=== PATIENT | female | born 1980 | race Caucasian/White ===

== ENCOUNTER → 2018-09-14 09:04 | Outpatient (CLI) | payer OTHER, SELFPAY ==
[2018-09-14 14:45] LABS: Erythrocyte Sedimentation Rate 37 mm/hr (0-20)
[2018-09-14 15:23] LABS: Alanine Aminotransferase 88 U/L (12-78); Albumin Level 3.2 gm/dL (3.4-5.0); Albumin/Globulin Ratio 0.8 (1.1-1.8); Alkaline Phosphatase 152 U/L (46-116); Anion Gap 13.7 mEq/L (5-15); Aspartate Amino Transferase 55 U/L (15-37); Bilirubin,Total 0.5 mg/dL (0.2-1.0); Blood Urea Nitrogen 13 mg/dL (7-18); C-Reactive Protein 11.9 mg/L (0.0-0.9); Calcium 8.8 mg/dL (8.5-10.1); Carbon Dioxide 26 mmol/L (21.0-32.0); Chloride 102 mmol/L (98-107); Creatinine,Serum 0.74 mg/dL (0.55-1.02); Estimated Glomerular Filt Rate 88 ml/min (>60); GFR (African American) 107 ML/MIN (>60); Globulin 4.1 gm/dl (1.3-3.2); Glucose 103 mg/dL (74-106); Potassium 4.7 mmoL/L (3.5-5.1); Sodium 137 mmol/L (136-145); Thyroid Stimulating Hormone 3.24 uIU/ml (0.358-3.740); Total Protein,Serum 7.3 gm/dL (6.4-8.2)
[2018-09-16 08:11] LABS: Antinuclear Antibodies, IFA Negative (.); RA Latex Turbid. 12.8 IU/mL (0.0-13.9)
== END ==
PROVIDERS: PCP Nurse Practitioner Family; Visit Provider Nurse Practitioner Family
DX: R60.1 Generalized edema (principal); M25.40 Effusion, unspecified joint
CPT/HCPCS: 36415; 80053; 84443; 85651; 86038; 86140; 86431

== ENCOUNTER → 2018-09-16 15:00 | Outpatient (CLI) | payer OTHER, SELFPAY ==
--- NOTE | 2018-09-16 15:03 | MR_ITS ---
MR lumbar spine wo con, MR 3-d myelogram/MRCP HISTORY: Low back pain with bilateral leg pain and right leg numbness and tingling ITS.REASON: RADICULOPATHY, LUMBOSACRAL REGION ORDERING PHYSICIAN: Denia Paniagua PATIENT AGE: 37 years Comparison: 09/04/2018 TECHNIQUE: Standard multiplanar multiecho sequences are performed without contrast. 3-D MIP and myelographic images are also rendered and reviewed FINDINGS: There is normal alignment. The spinal cord ends at the L1 level. There is mild rotoscoliosis of the lumbar spine convex left. T12-L1 and L1-L2 have an unremarkable appearance. There is decreased T1 and increased T2 signal involving the posterior and inferior aspect of the L2 vertebral body. No compressive changes are evident. L2-L3: Minimal disc desiccation. L3-L4: Minimal bulging discs eccentric toward the right. L4-L5: Unremarkable. L5-S1: Unremarkable. IMPRESSION: 1. Mild rotoscoliosis of lumbar spine convex left. 2. Bone marrow edema is present in the inferior aspect of the L2 vertebral body of uncertain etiology. Possibly related to mild discogenic endplate changes. Follow-up may confirm stability. No disc herniation or canal stenosis.
== END ==
PROVIDERS: PCP Nurse Practitioner Family; Visit Provider Nurse Practitioner Family
DX: M54.17 Radiculopathy, lumbosacral region (principal)
CPT/HCPCS: 72148; 76376

== ENCOUNTER 2018-11-02 16:00 | Outpatient (RCR) | payer OTHER, SELFPAY | END 2018-11-12 07:56 | disposition home or self-care (01) | LOC: PT.CARL 16:00 | PROVIDERS: Visit Provider Nurse Practitioner Family | DX: M54.17 Radiculopathy, lumbosacral region (principal) | CPT/HCPCS: 97110; 97163 ==